=== PATIENT | female | born 1985 | race Caucasian/White ===

== ENCOUNTER 2017-10-02 15:14 | Inpatient (IN) | payer OTHER ==
[~2017-10-02] VITALS: Ht 167.6 cm; Wt 112.0 kg
[2017-10-06 08:27] VITALS: BP 120/70
[2017-10-06] MEDS ORDERED: D5%-LACTATED RINGERS 1,000 ML IV SCH (09:07)
[2017-10-06] MEDS ORDERED: LACTATED RINGERS 1,000 ML IV SCH ×2 (09:07→12:23)
[2017-10-06] MEDS ORDERED: OXYTOCIN 30U/ 0.9% NaCL 500ML 500 ML IV ONE (09:07)
[2017-10-06 09:29] LABS: BASOPHILS # (AUTO) 0.03 x10^3/uL (0-0.1); BASOPHILS % (AUTO) 0 % (0-1); EOSINOPHILS % (AUTO) 1 % (1-7); LYMPHOCYTES # (AUTO) 1.51 x10^3/uL (1-3.4); LYMPHOCYTES % (AUTO) 15 % (22-44); MD NO; MEAN CORPUSCULAR HEMOGLOBIN 27.8 pg (27.0-34.8); MEAN CORPUSCULAR HGB CONC 32.6 g/dL (32.4-35.8); MEAN CORPUSCULAR VOLUME 85.1 fL (80-100); MEAN PLATELET VOLUME 10.2 fL (7.4-10.4); MONOCYTES # (AUTO) 0.38 x10^3/uL (0.2-0.8); MONOCYTES % (AUTO) 4 % (2-9); NEUTROPHILS % (AUTO) 80 % (42-75); PLATELET COUNT 194 x10^3/uL (130-400); RED BLOOD COUNT 3.91 x10^6/uL (3.82-5.3); RED CELL DISTRIBUTION WIDTH 15.1 % (9.6-15.2)
[2017-10-06] MEDS ORDERED: FENTANYL PF 100 MCG/2ML IVPush PRN (09:30)
[2017-10-06] MEDS ORDERED: TERBUTALINE 1 MG/ML, 1ML IVPush PRN (09:30)
[2017-10-06] MEDS ORDERED: CALCIUM CARBONATE 500 MG TAB.CHEW PO PRN (09:30)
[2017-10-06] MEDS ORDERED: FENTANYL PF 100 MCG/2ML IV PRN (09:30)
[2017-10-06] MEDS ORDERED: ONDANSETRON 2MG/ML, 2ML IVPush PRN (09:30)
[2017-10-06] MEDS ORDERED: OXYTOCIN 30U/ 0.9% NaCL 500ML 500 ML ONE (10:11)
[2017-10-06] MEDS ORDERED: NEWBORN KIT ONE (10:11)
[2017-10-06] MEDS ORDERED: FENTANYL/BUPIV./NS/PF 250 ML EPIDCONT SCH ×3 (12:23→12:32)
[2017-10-06] MEDS ORDERED: BUPIVACAINE/PF 0.25% ONE (12:27)
[2017-10-06] MEDS ORDERED: LACTATED RINGERS 1,000 ML IVBOLUS PRN ×2 (12:30)
[2017-10-06] MEDS ORDERED: NALOXONE 0.4 MG/ML, 1ML IVPush PRN ×2 (12:30)
[2017-10-06] MEDS ORDERED: EPHEDRINE 50 MG/ML, 1ML IVPush PRN (12:30)
[2017-10-06] MEDS ORDERED: FENTANYL PF 500 MCG, BUPIVACAINE/PF 0.5%, 30ML 62.5 ML in SODIUM CHLORIDE 0.9% 177.5 ML EPIDCONT SCH (13:00)
[2017-10-06] MEDS: OXYTOCIN 30U/ 0.9% NaCL 500ML 500 ML IV PRN (19:38)
[2017-10-06] MEDS: LACTATED RINGERS 1,000 ML IV SCH ×2 (20:23→21:17)
[2017-10-06] MEDS ORDERED: TERBUTALINE 1 MG/ML, 1ML ONE (21:53)
[2017-10-06] MEDS ORDERED: LACTATED RINGERS 1,000 ML INTUTE SCH (22:00)
[2017-10-06] MEDS ORDERED: LACTATED RINGERS 1,000 ML INTUTE PRN (22:00)
[2017-10-07] MEDS ORDERED: OXYTOCIN 30U/ 0.9% NaCL 500ML 500 ML ONE (00:18)
[2017-10-07] MEDS: OXYTOCIN 30U/ 0.9% NaCL 500ML 500 ML IV PRN ×2 (00:22→00:45)
[2017-10-07 00:55] VITALS: BP 118/74
[2017-10-07] MEDS: OXYTOCIN 30U/ 0.9% NaCL 500ML 500 ML IV SCH ×3 (01:55→21:55)
[2017-10-07] MEDS ORDERED: ONDANSETRON 2MG/ML, 2ML IV PRN (02:00)
[2017-10-07] MEDS ORDERED: MISOPROSTOL 200 MCG TABLET SL PRN (02:00)
[2017-10-07] MEDS ORDERED: BISACODYL 10 MG SUPP PR PRN (02:00)
[2017-10-07] MEDS ORDERED: METOCLOPRAMIDE 5 MG/ML, 2ML IV PRN (02:00)
[2017-10-07] MEDS ORDERED: OXYcodone/APAP 5/325MG TABLET PO PRN (02:00)
[2017-10-07] MEDS: IBUPROFEN 600 MG TABLET PO PRN ×2 (02:08→12:27)
[2017-10-07] MEDS: LACTATED RINGERS 1,000 ML IV SCH ×3 (04:23→20:23)
[2017-10-07 04:30] VITALS: BP 109/64
[2017-10-07 06:05] LABS: BASOPHILS # (AUTO) 0.04 x10^3/uL (0-0.1); BASOPHILS % (AUTO) 0 % (0-1); EOSINOPHILS % (AUTO) 1 % (1-7); LYMPHOCYTES # (AUTO) 1.67 x10^3/uL (1-3.4); LYMPHOCYTES % (AUTO) 13 % (22-44); MD NO; MEAN CORPUSCULAR HEMOGLOBIN 29.5 pg (27.0-34.8); MEAN CORPUSCULAR HGB CONC 34.3 g/dL (32.4-35.8); MEAN PLATELET VOLUME 10.4 fL (7.4-10.4); MONOCYTES # (AUTO) 0.57 x10^3/uL (0.2-0.8); MONOCYTES % (AUTO) 5 % (2-9); NEUTROPHILS # (AUTO) 10.02 x10^3/uL (1.8-6.8); NEUTROPHILS % (AUTO) 81 % (42-75); PLATELET COUNT 160 x10^3/uL (130-400); RED BLOOD COUNT 3.45 x10^6/uL (3.82-5.3); RED CELL DISTRIBUTION WIDTH 14.8 % (9.6-15.2)
[2017-10-07 07:35] VITALS: BP 105/70
[2017-10-07] MEDS: DOCUSATE 100 MG CAPSULE PO PRN (09:02)
[2017-10-07] MEDS: PRENATAL VIT/IRON/FA 1 EACH TABLET PO SCH (09:02)
[2017-10-07 13:00] VITALS: BP 119/79
[2017-10-07 16:12] VITALS: BP 118/79
[2017-10-07 20:00] VITALS: BP 126/77
[2017-10-07] MEDS: OXYcodone/APAP 5/325MG TABLET PO PRN (20:00)
[2017-10-08] MEDS: OXYcodone/APAP 5/325MG TABLET PO PRN ×3 (01:43→13:20)
[2017-10-08] MEDS: LACTATED RINGERS 1,000 ML IV SCH ×2 (04:23→12:23)
[2017-10-08 07:40] VITALS: BP 132/74
[2017-10-08] MEDS: OXYTOCIN 30U/ 0.9% NaCL 500ML 500 ML IV SCH (07:55)
[2017-10-08] MEDS: PRENATAL VIT/IRON/FA 1 EACH TABLET PO SCH (08:20)
[2017-10-08] MEDS: DOCUSATE 100 MG CAPSULE PO PRN (08:21)
[2017-10-08] MEDS ORDERED: IBUP-1222 PO (13:00)
[2017-10-08] MEDS ORDERED: OXYC-302 PO (13:00)
== END 2017-10-08 13:30 | disposition home or self-care (01) | DRG 775 ==
LOC: LDIP 10-06 08:06 → 2NW 10-07 00:50
PROVIDERS: ADMIT Obstetrics & Gynecology; ATTEND Obstetrics & Gynecology
PROC: 10E0XZZ Delivery of Products of Conception, External Approach (ICD-10-PCS; principal; 2017-10-06)
PROC: 3E0R3BZ Introduction of Anesthetic Agent into Spinal Canal, Percutaneous Approach (ICD-10-PCS; 2017-10-06)
PROC: 00HU33Z Insertion of Infusion Device into Spinal Canal, Percutaneous Approach (ICD-10-PCS; 2017-10-06)
PROC: 3E033VJ Introduction of Other Hormone into Peripheral Vein, Percutaneous Approach (ICD-10-PCS; 2017-10-06)
DX: O99.214 Obesity complicating childbirth (principal); Z37.0 Single live birth; Z3A.40 40 weeks gestation of pregnancy; E66.9 Obesity, unspecified; Z68.39 Body mass index [BMI] 39.0-39.9, adult
CPT/HCPCS: 36415; 85025; 86850; 86900; J3010; J3490; J2590; J7050; J7120

== ENCOUNTER 2018-01-18 11:54 | Day surgery (SDC) | payer OTHER ==
[~2018-01-18] VITALS: Ht 167.6 cm; Wt 99.9 kg
[~2018-01-18 11:54] MED LIST: IBUP-1222 PO; NONE PER PT; OXYC-302 PO
[2018-01-18 12:44] VITALS: BP 126/82
[2018-01-18] MEDS ORDERED: LACTATED RINGERS 1,000 ML IV SCH (13:00)
[2018-01-18] MEDS ORDERED: BUPIVACAINE/PF-EPI 0.25% 1:200K ONE (13:15)
[2018-01-18] MEDS ORDERED: MIDAZOLAM 1 MG/ML, 2ML ONE ×2 (13:28)
[2018-01-18] MEDS ORDERED: FENTANYL PF 250 MCG/5ML ONE ×2 (13:28)
[2018-01-18] MEDS ORDERED: LIDOCAINE-MPF 2% ,5ML ONE (13:35)
[2018-01-18] MEDS ORDERED: ONDANSETRON 2MG/ML, 2ML ONE ×2 (13:35)
[2018-01-18] MEDS ORDERED: PROPOFOL 10 MG/ML, 20ML ONE (13:35)
[2018-01-18] MEDS ORDERED: KETOROLAC 30 MG/1 ML ONE (13:35)
[2018-01-18] MEDS ORDERED: DEXAMETHASONE 4 MG/ML, 1ML ONE ×2 (13:35)
[2018-01-18] MEDS ORDERED: CEFOTETAN 2 GM ONE (13:41)
[2018-01-18] MEDS ORDERED: ROCURONIUM 10 MG/ML,10ML ONE (13:41)
[2018-01-18] MEDS ORDERED: FENTANYL PF 100 MCG/2ML ONE (14:57)
[2018-01-18] MEDS ORDERED: OXYcodone 5 MG/5 ML ORAL.SOL UDC ONE (14:57)
[2018-01-18] MEDS ORDERED: ACETAMINOPHEN 325 MG TABLET PO PRN (15:00)
[2018-01-18] MEDS ORDERED: LABETALOL 5MG/ML, 20ML IV PRN (15:00)
[2018-01-18] MEDS ORDERED: MEPERIDINE/PF 25MG/0.5ML IVPush PRN (15:00)
[2018-01-18] MEDS ORDERED: hydrALAzine 20 MG/ML, 1ML IV PRN (15:00)
[2018-01-18] MEDS ORDERED: PROMETHAZINE 25 MG/ML, 1ML IV PRN (15:00)
[2018-01-18] MEDS ORDERED: FENTANYL PF 100 MCG/2ML IV PRN (15:00)
[2018-01-18] MEDS ORDERED: HALOPERIDOL 5 MG/ML IV PRN (15:00)
[2018-01-18] MEDS ORDERED: HYDROmorphone 2 MG/ML, 1ML IV PRN (15:00)
[2018-01-18] MEDS ORDERED: OXYcodone 5 MG/5 ML ORAL.SOL UDC PO PRN (15:00)
== END 2018-01-18 16:35 | disposition home or self-care (01) ==
LOC: OUT 11:54
PROVIDERS: ATTEND Obstetrics & Gynecology
DX: Z30.2 Encounter for sterilization (principal)
CPT/HCPCS: 58670; 81025; J1100; J1885; J2405; J2704; J3010; J3490; J7120; S0074; J2250